=== PATIENT | female | born 1975 | race Caucasian/White ===

== ENCOUNTER → 2016-12-23 | Outpatient (CLI) | payer OTHER, MEDICARE ==
[~2016-12-23] MED LIST: BIOTIN 5000 MCG; DULCOLAX5 MG PO; EFFEXOR75 M1 PO; ESTRACE PO; ESTRACE1 M1 PO; FERROUS SULFATE1 TAB PO; HALFPRIN162 MG PO; HYDROCODON-ACE1 EAC1 PO; HYDROXYZINE HCL25 M1 PO; IBUPROFEN800 MG PO; LAXATIVE5 M1 PO; LIPITOR40 MG PO; MELATONIN10 M2 PO; MELATONIN3 MG PO; NITROGLYCERIN0.4 MG SL; NORVASC PO; PHENERGAN25 M1 PO; POT CITRATE; SUMATRIPTAN SU100 MG PO; TYLENOL PM EX-S1 TA4 PO; UROCIT K PO; VITAMIN B6 100 MG
== END | disposition home or self-care (01) ==
LOC: CECH 13:44
DX: R06.00 Dyspnea, unspecified (principal); I07.1 Rheumatic tricuspid insufficiency
CPT/HCPCS: 93306